=== PATIENT | male | born 1995 | race African-American/Black ===

== ENCOUNTER 2019-07-25 21:19 | Emergency (ER) | payer OTHER, SELFPAY ==
--- NOTE | 2019-07-25 21:49 | ER ---
Nurse's Notes [facility] Name: Alie Pfeiffer Age: 23 yrs Sex: Male : 1995 Arrival Date: 07/25/2019 Time: 21:22 Bed 15 Private MD: Diagnosis: Cellulitis of right upper limb Presentation: 07/25 21:31 Presenting complaint: Patient states: He was tending to a horse when he felt something aj1 bite his right hand, he never saw what it was, but his hand has been swollen and hurting since then. Reports that the pain radiates up his right arm. Transition of care: patient was not received from another setting of care. Onset of symptoms was July 25, 2019. Risk Assessment: Do you want to hurt yourself or someone else? Patient reports no desire to harm self or others. Initial Sepsis Screen: Does the patient meet any 2 criteria? No. Patient's initial sepsis screen is negative. Does the patient have a suspected source of infection? No. Patient's initial sepsis screen is negative. Care prior to arrival: None. 21:31 Method Of Arrival: Ambulatory [facility] 21:31 Acuity: ADITI 4 aj1 Triage Assessment: 21:33 Bite description: bite sustained to right hand by unknown insect, animal information: aj1 vaccination(s) is not applicable. General: Appears in no apparent distress. comfortable, Behavior is calm, cooperative, appropriate for age. Pain: Complains of pain in right hand Pain currently is 6 out of 10 on a pain scale. Neuro: Level of Consciousness is awake, alert, obeys commands. Cardiovascular: Patient's skin is warm and dry. Respiratory: Airway is patent Respiratory effort is even, unlabored, Respiratory pattern is regular, symmetrical. Historical: - Allergies: 21:33 No Known Allergies; aj1 - Home Meds: 21:33 None [Active]; aj1 - PMHx: 21:33 None; aj1 - PSHx: 21:33 None; aj1 - Immunization history:: Flu vaccine is up to date. - Social history:: Smoking status: Patient/guardian denies using tobacco. - Ebola Screening: : Patient denies travel to an Ebola-affected area in the 21 days before illness onset. Screenin:37 Abuse screen: Denies threats or abuse. Denies injuries from another. Nutritional aa1 screening: No deficits noted. Tuberculosis screening: No symptoms or risk factors identified. Fall Risk None identified. Assessment: 21:37 General: Appears in no apparent distress. comfortable, Behavior is calm, cooperative, aa1 appropriate for age. Pain: Complains of pain in right hand Quality of pain is described as throbbing, Pain began 3 hours ago. Is continuous. Neuro: Level of Consciousness is awake, alert, obeys commands, Oriented to person, place, time, situation, Moves all extremities. Full function. Respiratory: Airway is patent Respiratory effort is even, unlabored, Respiratory pattern is regular, symmetrical. GI: No signs and/or symptoms were reported involving the gastrointestinal system. : No signs and/or symptoms were reported regarding the genitourinary system. EENT: No signs and/or symptoms were reported regarding the EENT system. Derm: Skin is intact, is healthy with good turgor, Skin is pink, warm \T\ dry. small area of redness noted to dorsum of R hand. Musculoskeletal: Circulation, motion, and sensation intact. Capillary refill < 3 seconds. 22:08 Reassessment: Patient appears in no apparent distress at this time. Patient is alert, aa1 oriented x 3, equal unlabored respirations, skin warm/dry/pink. Discussed d/c \T\ f/u instructions with pt; denies questions or concerns at this time. Ambulatory to lobby with steady gait. Vital Signs: 21:33 BP 110 / 74; Pulse 60; Resp 18; Temp 97.7; Pulse Ox 98% on R/A; Weight 97.52 kg (R); aj1 Height 5 ft. 6 in. (167.64 cm) (R); Pain 6/10; 21:33 Body Mass Index 34.70 (97.52 kg, 167.64 cm) aj1 ED Course: 21:22 Patient arrived in ED. aj1 21:32 Triage completed. aj1 21:33 Arm band placed on Patient placed in an exam room. aj1 21:34 Gillian Melendez, CLIFTON is Primary Nurse. aa1 21:35 Pavan Cronin MD is Attending Physician. tw4 21:37 Patient has correct armband on for positive identification. Bed in low position. Call aa1 light in reach. 21:37 No provider procedures requiring assistance completed. Patient did not have IV access aa1 during this emergency room visit. Administered Medications: 22:01 Drug: Cleocin 300 mg Route: PO; aa1 22:01 Follow up: Response: No adverse reaction; Medication administered at discharge. aa1 Outcome: 21:48 Discharge ordered by . tw4 22:08 Discharged to home ambulatory. aa1 22:08 Condition: good 22:08 Discharge instructions given to patient, Instructed on discharge instructions, follow up and referral plans. medication usage, Demonstrated understanding of instructions, follow-up care, medications, Prescriptions given X 1. 22:12 Patient left the ED. aa1 Signatures: Rosita Yarbrough, RN RN aj1 Gillian Melendez RN RN aa1 Pavan Cronin MD MD tw4
[2019-07-25] MEDS ORDERED: CLINDAMYCIN HCL 150 MG CAP ONE (21:56)
--- NOTE | 2019-07-25 22:13 | EDPHYS ---
Physician Documentation [facility] Name: Alie Pfeiffer Age: 23 yrs Sex: Male : 1995 Arrival Date: 07/25/2019 Time: 21:22 Bed 15 Private MD: ED Physician Pavan Cronin HPI: 07/25 21:50 This 23 yrs old Black Male presents to ER via Ambulatory with complaints of Insect Bite.tw4 21:50 The patient presents with cellulitis of the dorsum of right hand. Description: The tw4 affected area is small, erythematous. Onset: The symptoms/episode began/occurred today. Possible cause(s): insect sting. Associated signs and symptoms: The patient has no apparent associated signs or symptoms. The patient has not experienced similar symptoms in the past. Historical: - Allergies: 21:33 No Known Allergies; aj1 - Home Meds: 21:33 None [Active]; aj1 - PMHx: 21:33 None; aj1 - PSHx: 21:33 None; aj1 - Immunization history:: Flu vaccine is up to date. - Social history:: Smoking status: Patient/guardian denies using tobacco. - Ebola Screening: : Patient denies travel to an Ebola-affected area in the 21 days before illness onset. ROS: 21:50 Constitutional: Negative for fever, chills, and weight loss, Eyes: Negative for injury, tw4 pain, redness, and discharge, Cardiovascular: Negative for chest pain, palpitations, and edema, Respiratory: Negative for shortness of breath, cough, wheezing, and pleuritic chest pain, Abdomen/GI: Negative for abdominal pain, nausea, vomiting, diarrhea, and constipation. 21:50 Skin: Positive for erythema. Exam: 21:50 Constitutional: This is a well developed, well nourished patient who is awake, alert, tw4 and in no acute distress. Head/Face: Normocephalic, atraumatic. Chest/axilla: Normal chest wall appearance and motion. Nontender with no deformity. No lesions are appreciated. Cardiovascular: Regular rate and rhythm with a normal S1 and S2. No gallops, murmurs, or rubs. Normal PMI, no JVD. No pulse deficits. Respiratory: Lungs have equal breath sounds bilaterally, clear to auscultation and percussion. No rales, rhonchi or wheezes noted. No increased work of breathing, no retractions or nasal flaring. Abdomen/GI: Soft, non-tender, with normal bowel sounds. No distension or tympany. No guarding or rebound. No evidence of tenderness throughout. MS/ Extremity: Pulses equal, no cyanosis. Neurovascular intact. Full, normal range of motion. Neuro: Awake and alert, GCS 15, oriented to person, place, time, and situation. Cranial nerves II-XII grossly intact. Motor strength 5/5 in all extremities. Sensory grossly intact. Cerebellar exam normal. Normal gait. 21:50 Skin: cellulitis, that is mild, on the dorsum of right hand. Vital Signs: 21:33 BP 110 / 74; Pulse 60; Resp 18; Temp 97.7; Pulse Ox 98% on R/A; Weight 97.52 kg (R); aj1 Height 5 ft. 6 in. (167.64 cm) (R); Pain 6/10; 21:33 Body Mass Index 34.70 (97.52 kg, 167.64 cm) aj1 MDM: 21:35 Patient medically screened. tw4 Administered Medications: 22:01 Drug: Cleocin 300 mg Route: PO; aa1 22:01 Follow up: Response: No adverse reaction; Medication administered at discharge. aa1 Disposition: 07/25/19 21:48 Discharged to Home. Impression: Cellulitis of right upper limb. - Condition is Stable. - Discharge Instructions: Cellulitis, Adult. - Prescriptions for Cleocin 300 mg Oral Capsule - take 1 capsule by ORAL route every 6 hours for 10 days; 40 capsule. - Medication Reconciliation Form, Thank You Letter, Antibiotic Education, Prescription Opioid Use form. - Follow up: Private Physician; When: Upon discharge from the Emergency Department; Reason: Recheck today's complaints, Continuance of care. - Problem is new. - Symptoms have improved. Signatures: Rosita Yarbrough RN RN aj1 Gillian Melendez RN RN aa1 Pavan Cronin MD MD tw4 Corrections: (The following items were deleted from the chart) 22:12 21:48 07/25/2019 21:48 Discharged to Home. Impression: Cellulitis of right upper limb. aa1 Condition is Stable. Forms are Medication Reconciliation Form, Thank You Letter, Antibiotic Education, Prescription Opioid Use. Follow up: Private Physician; When: Upon discharge from the Emergency Department; Reason: Recheck today's complaints, Continuance of care. Problem is new. Symptoms have improved. tw4
[2019-07-25 22:17] VITALS: BP 110/74; TEMP 97.7; O2SAT 98
== END 2019-07-25 22:12 | disposition home or self-care (01) ==
LOC: ER 21:19
DX: L03.113 Cellulitis of right upper limb (principal)
CPT/HCPCS: 99283